=== PATIENT | male | born 1960 ===

== ENCOUNTER 2017-10-25 14:24 | Emergency (ER) | payer BC ==
[~2017-10-25] VITALS: Ht 190.5 cm; Wt 129.5 kg
[2017-10-25] MEDS ORDERED: AMBIEN10 MG PO (15:34)
[2017-10-25] MEDS ORDERED: GOOD NEIGHBOR P20 M1 PO (16:09)
[2017-10-25] MEDS ORDERED: PREDNISONE10 MG PO (16:09)
[2017-10-25 17:56] VITALS: BP 130/92
== END 2017-10-25 16:25 | disposition home or self-care (01) ==
LOC: ED 14:24
DX: R53.81 Other malaise (principal); M79.1 Myalgia; D72.819 Decreased white blood cell count, unspecified; R06.02 Shortness of breath
CPT/HCPCS: J7512; Q9967

== ENCOUNTER → 2017-10-25 | Outpatient (CLI) | payer BC ==
[~2017-10-25] MED LIST: AMBIEN10 MG PO; GOOD NEIGHBOR P20 M1 PO; PREDNISONE10 MG PO
[2017-10-25 13:49] LABS: EOS % 0.7 % (0.0-4.0); HEMATOCRIT 45.1 % (42.0-52.0); HEMOGLOBIN 14.8 g/dL (13.5-18.0); LYMPH# 0.8 (1.50-4.00); MEAN CELL VOLUME 89 fl (78-100); MEAN CORPUSCULAR HEMOGLOBIN 29 pg (27-31); MEAN CORPUSCULAR HGB CONC 33 g/dL (33-37); MEAN PLATELET VOLUME 9.4 fl (7.4-10.4); MONO # 0.3 (0.20-0.80); NEU # 1.6 (1.40-6.50); PLATELET COUNT 240 K/mm3 (130-400); RED BLOOD COUNT 5.06 M/mm3 (4.20-5.60); RED CELL DISTRIBUTION WIDTH 14.9 % (11.5-14.5); WHITE BLOOD COUNT 2.7 K/mm3 (4.8-10.8)
[2017-10-25 13:52] LABS: ALBUMIN 3.8 g/dL (3.5-5.0); BUN/CREATININE RATIO 15.7 (6.0-26.0); CALCIUM 8.8 mg/dL (8.4-10.2); POTASSIUM 3.9 mmol/L (3.6-5.0); TOTAL BILIRUBIN 0.4 mg/dL (0.2-1.3); TOTAL PROTEIN 7.3 g/dL (6.3-8.2)
[2017-10-25 13:57] LABS: D-DIMER 0.76 mg/L FEU (0.15-0.50)
== END ==
LOC: LAB 13:05 → RAD 13:05
PROVIDERS: Nurse Practitioner Family
DX: R06.02 Shortness of breath (principal); R05 Cough